=== PATIENT | male | born 1985 | race African-American/Black ===

== ENCOUNTER 2017-07-09 13:01 | Emergency (ER) | payer OTHER, SELFPAY ==
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
== END 2017-07-09 14:45 | disposition home or self-care (01) ==
LOC: ERS 13:01
DX: S06.9X1A Unspecified intracranial injury with loss of consciousness of 30 minutes or less, initial encounter (principal); S16.1XXA Strain of muscle, fascia and tendon at neck level, initial encounter; S32.2XXA Fracture of coccyx, initial encounter for closed fracture; V43.52XA Car driver injured in collision with other type car in traffic accident, initial encounter
CPT/HCPCS: 70450; 72100; 72125

== ENCOUNTER 2022-01-09 12:58 | Emergency (ER) | payer OTHER, SELFPAY | END 2022-01-09 15:16 | disposition left against medical advice (07) | LOC: ERS 12:58 | DX: Z53.20 Procedure and treatment not carried out because of patient's decision for unspecified reasons (principal) ==